=== PATIENT | female | born 1955 | race Asian ===

== ENCOUNTER 2024-06-08 14:24 | Inpatient (IN) | payer MEDICARE, OTHER ==
[~2024-06-08] VITALS: Ht 160 cm; Wt 81.0 kg
[2024-06-08 15:35] LABS: APPEARANCE,URINE CLEAR (CLEAR); BILIRUBIN,URINE NEGATIVE (NEGATIVE); COLOR,URINE LIGHT YELLOW (YELLOW); GLUCOSE, URINE (UA) NEGATIVE (NEGATIVE); KETONES,URINE NEGATIVE (NEGATIVE); LEUKOCYTE ESTERASE ,URINE NEGATIVE (NEGATIVE); NITRATE,URINE NEGATIVE (NEGATIVE); OCCULT BLOOD,URINE NEGATIVE (NEGATIVE); PH,URINE 7.5 (5.0-8.0); PH,URINE DRUG SCREEN 7.5 (5.0-8.0); PROTEIN,URINE 30-70 mg/dL (NEGATIVE); SPECIFIC GRAVITIY, URINE 1.015 (1.003-1.030); UROBILINOGEN,URINE <=1.0 mg/dL (<=1.0)
[2024-06-08 15:42] LABS: ALCOHOL, URINE DRUG SCREEN NEGATIVE (NEGATIVE); AMPHET/METH SCREEN,URINE NEGATIVE (NEGATIVE); BARBITURATE SCREEN, URINE NEGATIVE (NEGATIVE); BENZODIAZEPINES SCREEN,URINE NEGATIVE (NEGATIVE); CANNABINOID SCREEN,URINE NEGATIVE (NEGATIVE); COCAINE SCREEN,URINE NEGATIVE (NEGATIVE); METHADONE SCREEN, URINE NEGATIVE (NEGATIVE); OPIATE SCREEN,URINE NEGATIVE (NEGATIVE); PHENCYCLIDINE SCREEN,URINE NEGATIVE (NEGATIVE)
[2024-06-08 15:45] LABS: BASOPHILS % (AUTO) 0.5 % (0.0-2.0); EOSINOPHILS % (AUTO) 0.9 % (1.0-6.0); HEMATOCRIT 42.2 % (36-46); HEMOGLOBIN 13.7 g/dL (12.0-16.0); LYMPHOCYTES # (AUTO) 1.5 K/uL (1.0-4.8); LYMPHOCYTES % (AUTO) 19.9 % (22.0-44.0); MEAN CORPUSCULAR HEMOGLOBIN 28.7 pg (26.0-34.0); MEAN CORPUSCULAR HGB CONC 32.5 G/dL (31.0-37.0); MEAN CORPUSCULAR VOLUME 88 fL (80-100); MONOCYTES # (AUTO) 0.8 K/uL (0.1-1.0); MONOCYTES % (AUTO) 10.3 % (2.0-9.0); NEUTROPHILS # (AUTO) 5.3 K/uL (1.8-7.7); NEUTROPHILS % (AUTO) 68.4 % (40.0-70.0); PLATELET COUNT (AUTO) 229 K/uL (150-450); RED BLOOD CELL COUNT(AUTO) 4.78 MIL/uL (4.00-5.20); WHITE BLOOD COUNT (AUTO) 7.7 K/uL (4.5-11.0)
[2024-06-08 15:58] LABS: CALCIUM, TOTAL 8.7 mg/dL (8.8-10.5); CREATININE 1.02 mg/dL (0.60-1.30); POTASSIUM 3.6 mmol/L (3.5-5.1)
[2024-06-08 16:00] LABS: TROPONIN I-HIGH SENSITIVITY 5 ng/L (<51)
[2024-06-08 16:04] LABS: ALBUMIN 3.4 g/dL (3.4-5.0); BILIRUBIN,TOTAL 0.2 mg/dL (0.1-1.0); TOTAL PROTEIN, SERUM 7.5 g/dL (6.4-8.2)
[2024-06-08] MEDS: SODIUM CHLORIDE 0.9% 1,000 ML IV ONE (17:24)
[2024-06-08] MEDS: MECLIZINE HCL 25 MG TABLET PO ONE (19:31)
[2024-06-08] MEDS ORDERED: 0.9% SODIUM CHLORIDE 10 ML SYRINGE IVP ONE (19:41)
[2024-06-08] MEDS ORDERED: SODIUM CHLORIDE 0.9% 100 ML ONE (19:41)
[2024-06-08] MEDS ORDERED: IOHEXOL 350 MG/ML 100 ML VIAL ONE (19:41)
[2024-06-09] MEDS ORDERED: ATOR10TA PO (01:52)
[2024-06-09] MEDS ORDERED: AMLO-258 PO (01:52)
[2024-06-09] MEDS ORDERED: CLON0.1T2 PO (01:52)
[2024-06-09] MEDS ORDERED: ASPI81TA87 PO (01:52)
[2024-06-09] MEDS ORDERED: MORPHINE SULFATE 2 MG/ML SYRINGE IVP PRN (02:00)
[2024-06-09] MEDS ORDERED: ACETAMINOPHEN 325 MG TABLET PO PRN (02:00)
[2024-06-09] MEDS ORDERED: MAGNESIUM HYDROXIDE SUSPENSION 30 ML UDCUP PO PRN (02:00)
[2024-06-09] MEDS ORDERED: ZOLPIDEM TARTRATE 5 MG TABLET PO PRN (02:00)
[2024-06-09] MEDS ORDERED: IPRATROPIUM BROMIDE 0.5 MG/2.5 ML NEB SOLUTION NEB PRN (02:00)
[2024-06-09] MEDS ORDERED: HYDROCODONE/ACETAMINOPHEN 5-325 MG TABLET PO PRN (02:00)
[2024-06-09] MEDS ORDERED: ALBUTEROL SULFATE 2.5 MG/0.5 ML NEB SOLUTION NEB PRN (02:00)
[2024-06-09] MEDS ORDERED: BISACODYL 10 MG RECTAL RECTAL SUPPOSITORY PR PRN (02:00)
[2024-06-09] MEDS ORDERED: MECLIZINE HCL 25 MG TABLET PO PRN (02:30)
[2024-06-09] MEDS ORDERED: CloNIDine HCL 0.1 MG TABLET PO PRN (02:30)
[2024-06-09 03:03] VITALS: BP 152/89; PULSE 76; RESP 20; TEMP 98.5; O2SAT 96
[2024-06-09 08:50] VITALS: BP 157/96; PULSE 82; RESP 18; TEMP 97.9; O2SAT 95
[2024-06-09] MEDS: AmLODIPine BESYLATE 10 MG TABLET PO SCH (08:58)
[2024-06-09] MEDS: ASPIRIN 81 MG CHEWABLE TABLET PO SCH (08:58)
[2024-06-09] MEDS: ATORVASTATIN CALCIUM 10 MG TABLET PO SCH (08:58)
[2024-06-09] MEDS: HEPARIN SODIUM,PORCINE 5,000 UNITS/ML VIAL SQ SCH (08:59)
[2024-06-09] MEDS: PANTOPRAZOLE SODIUM 40 MG DR TABLET PO SCH (08:59)
[2024-06-09] MEDS: CloNIDine HCL 0.1 MG TABLET PO ONE (13:58)
[2024-06-09 15:11] VITALS: BP 133/70; PULSE 72; RESP 18; TEMP 98.3; O2SAT 96
[2024-06-09] MEDS ORDERED: MECL-302 PO (17:13)
[2024-06-09 17:28] VITALS: BP 147/86; PULSE 67; RESP 18; O2SAT 96
[2024-06-09 20:12] VITALS: BP 116/63; PULSE 74; RESP 16; TEMP 98.2; O2SAT 74; O2SAT 94
[2024-06-09] MEDS: CloNIDine HCL 0.1 MG TABLET PO SCH (21:00)
[2024-06-10 00:10] VITALS: BP 122/75; PULSE 71; RESP 16; TEMP 98.2; O2SAT 94
[2024-06-10 04:18] VITALS: BP 132/72; PULSE 68; RESP 16; TEMP 98; O2SAT 95
[2024-06-10] MEDS: ONDANSETRON HCL 4 MG/2 ML VIAL IVP PRN (07:35)
[2024-06-10 08:52] VITALS: BP 151/81; PULSE 76; RESP 18; TEMP 98.3; O2SAT 99
== END 2024-06-10 11:05 | disposition home or self-care (01) | DRG 305 ==
LOC: EMS 14:43 → EDH 06-09 02:06 → 5S 06-09 02:50
PROVIDERS: ADMIT Hospitalist; ATTEND Hospitalist
DX: I16.0 Hypertensive urgency (principal); I72.5 Aneurysm of other precerebral arteries; I10 Essential (primary) hypertension
CPT/HCPCS: 70450; 71045; 74177; 80053; 80307; 81003; 84484; 85025; 93005; 99285; G0378; J1644; J2405; J7050; 36415-L1; 36415-TC